=== PATIENT | male | born 1985 | race Caucasian/White ===

== ENCOUNTER 2017-05-03 18:33 | Observation (INO) | payer OTHER ==
[~2017-05-03] VITALS: Ht 177.8 cm; Wt 59.0 kg
[~2017-05-03 18:33] MED LIST: INSLIS SUBQ; INSU100V7 SUBQ; SYRI-233 SC
--- NOTE | 2017-05-03 18:40 | ED.REPORT ---
HPI-General Illness Date of Service May 03, 2017 ED Provider: Aldair Medellin DO 31 y/o male with a hx of DM and ADHD presents to the ED via EMS complaining of weakness, onset today. The pt missed his insulin doses over the weekend. He takes 60 units of Lantus. Associated sx include dizziness. He denies vomiting and fever. The pt was at [facility] for alcohol abuse. Nursing Notes Stated Complaint: HIGH BLOOD SUGAR Chief Complaint: General Complaint Nursing Notes Reviewed: Yes Allergies: Coded Allergies: No Known Allergies (Verified Allergy, Unknown, 05/03/17) Scheduled Insulin Glargine (Lantus U100 Insulin Vial) 100 Unit/Ml Vial 48 UNIT SUBQ HS Insulin Human Lispro (HumaLOG U100 Insulin Vial) 100 Unit/Ml Unit 22 UNIT SUBQ DIRECTED Check blood sugars before meals and at bedtime. Use correction factor in addition to your pre-meal insulin regimen as stated below. Blood Sugar Lispro Correction: <151, 0 units; 151-175, 1 unit; 176-200, 2 units; 201-225, 3 units ; 226-250, 4 units; 251-275, 5 units; 276-300, 6 units; 301-325, 7 units; 326- 350, 8 units; 351-375, 9 units; 376-400, 10 units; >400, 12 units. General Time Seen by MD: 18:38 Chief Complaint Weakness Hx Obtained From: Patient Arrived By: Ambulance Sudden in Onset?: No Onset Occurred: 2 days ago Symptom Duration: Since onset Severity: Current: No pain currently Severity: Maximum: No pain Recent Healthcare: No recent doctor visit Similar Sx Previous: No Past Medical History Past Medical History Notes: PCP: Dr. Samia Presley Admit for DKA from med noncompliance 03/2016 Past Medical History IDDM ADHD Anxiety Seizures Reports: Diabetes mellitus Reports: Depression Past Surgical History Reports: Tonsillectomy Family History Noncontributory Smoking History Former Smoker Social History Alcohol Use: 1-3 per week Drug Use: Denies drug use Other Social History: Good social support, Local resident Ambulatory Status Independent Review of Systems Reports: high blood sugar Full Review of Systems Constitutional: Reports: Weakness - generalized, Denies: Fever GI: Denies: Vomiting Neurologic: Reports: Dizziness Physical Exam Vital Signs Vital Signs Date Time Temp Pulse Resp B/P Pulse Ox O2 Delivery O2 Flow Rate FiO2 05/03/17 19:50 37.1 98 20 144/88 99 Room Air Initial VS: Reviewed Head / Eyes: Atraumatic, Normocephalic Neck: Supple, Non-tender, Full range of motion Extremities: Vascular intact, Neuro intact, No swelling, No tenderness Skin: Warm, Dry, No cyanosis Neurologic: Alert, Oriented, Nonfocal General/Constitutional: Awake, Alert Distress / Hydration: Positive: Distress mild Appearance / Presentation: Positive: Frail Respiratory / Chest: Atraumatic, Breath sounds NL, Breath sounds = bilat, No respiratory distress, No rales, No rhonchi, No wheezing Cardiovascular: Heart rate NL, Regular rhythm, Heart sounds NL, No gallop, No murmurs, No rubs Abdomen: Atraumatic, Soft, Non-tender, No guarding, No rebound Interpretation & Diagnostics Lab Results Interpretation Result Diagram: 05/03/17 1853 05/03/17 2150 Test 05/03/17 18:53 05/03/17 19:20 White Blood Count 6.7th/mm3 (3.8-10.1) Red Blood Count 5.10mil/mm3 (4.40-5.80) Hemoglobin 15.3g/dL (13.8-17.2) Hematocrit 43.5% (41.0-50.0) Mean Corpuscular Volume 85.3fL (81-100) Mean Corpuscular Hemoglobin 30.0pg (27.0-35.0) Mean Corpuscular Hemoglobin Concent 35.2% (32.0-37.0) Red Cell Distribution Width 11.9% (12.3-15.4) Platelet Count 425bil/L (150-400) Neutrophils (%) (Auto) 64.9% (40-74) Lymphocytes (%) (Auto) 24.7% (14-46) Monocytes (%) (Auto) 6.6% (4-12) Eosinophils (%) (Auto) 2.6% (0-5) Basophils (%) (Auto) 1.2% (0-3) Magnesium Level 1.9mg/dL (1.6-2.6) Ketones Small (Negative) Urine Color Yellow (YELLOW) Urine Appearance Clear (CLEAR,HAZY) Urine pH 5.5 (5.0-8.0) Urine Specific [place] 1.010 (1.003-1.035) Urine Protein Negativemg/dL (NEG,TRACE) Urine Glucose (UA) >1000mg/dL (NEGATIVE) Urine Ketones >80mg/dL (NEGATIVE) Urine Occult Blood Negative (NEGATIVE) Urine Nitrite Negative (NEGATIVE) Urine Bilirubin Negative (NEGATIVE) Urine Urobilinogen Normalmg/dL (NORMAL) Urine Leukocyte Esterase Negative (NEGATIVE) Urine RBC 0-2/hpf (0-2) Urine WBC 0-5/hpf (0-5) Urine Epithelial Cells Few/hpf (NONE-MOD) Urine Crystals None seen (NONE SEEN) Urine Bacteria Few/hpf (NONE-FEW) Urine Hyaline Casts None/lpf (NONE) Urine Granular Casts None seen (NONE SEEN) Urine Waxy Casts None seen (NONE SEEN) Urine Red Blood Cell Casts None seen (NONE SEEN) Urine White Blood Cell Casts None seen (NONE SEEN) Urine Mucus None seen (None Seen) Urine Trichomonas None seen (NONE SEEN) Urine Yeast None (NONE SEEN) Urinalysis Comment None Urine Culture Reflexed Not indicated Hold Urine Received (Received) Re-Eval/Medical Decision Med Decision/Clinical Course DKA likely due to noncompliance. Will admit. Insulin drip initiated in the ER. Time of Eval: 19:40 Re-Evaluation/Progress Note: Rechecked pt. Discussed lab results and plan to admit. Pt understands and agrees with the plan for admission. All questions addressed. Consultation : Referral / Consult Name: Shivam Churchill MD Consulted With: Hospitalist Call Returned at: 20:12 News Camera Operator: Will see patient, Agrees with eval, Agrees with plan, Accepts admit Counseled Regarding: Diagnosis, Lab results, Need for admission Discharge & Departure Primary Impression: DKA (diabetic ketoacidoses) Disposition: ADMITTED TO HOSPITAL Discharge Condition All VS Reviewed: Yes Referrals: NOPCP (PCP) Crit Care Except Billable Proc Time Spent: 30-74 minutes Services Performed: Patient management by me, Time spent at bedside, Reviewing test results Critical Care Notes: See MDM Scribe Attestation Portions of this note were transcribed by Juan Carrizales. I, , personally performed the history, physical exam and medical decision-making;I reviewed and confirmed the accuracy of the information in the transcribed note. Signed by Annika Dunlap. 05/03/17 20:15 Aldair Medellin DO May 03, 2017 18:40 Juan Carrizales May 03, 2017 18:43
[2017-05-03] MEDS ORDERED: 0.9% Sodium Chloride 1,000 ML IV ONE (18:45)
[2017-05-03] MEDS ORDERED: Ondansetron 2 mg/mL 2 mL Inj IV PRN (18:45)
[2017-05-03 19:03] LABS: BASOPHILS % (AUTO) 1.2 % (0-3); EOSINOPHILS % (AUTO) 2.6 % (0-5); MONOCYTES % (AUTO) 6.6 % (4-12); Mean Corpuscular Volume 85.3 fL (81-100); NEUTROPHILS % (AUTO) 64.9 % (40-74); Platelet Count 425 bil/L (150-400)
[2017-05-03 19:22] LABS: Magnesium 1.9 mg/dL (1.6-2.6)
[2017-05-03] MEDS: 0.9% Sodium Chloride 1,000 ML IV SCH ×2 (19:46→20:59)
[2017-05-03 19:50] VITALS: BP 144/88; PULSE 98; RESP 20; O2SAT 99
[2017-05-03] MEDS ORDERED: Insulin Human REGular 300 Unit/3 mL Inj IV PRN (20:05)
[2017-05-03] MEDS ORDERED: D5W1/2NS 1,000 mL IV PRN (20:05)
[2017-05-03] MEDS ORDERED: Insulin Human REGular 100 Units/100 mL NS IV SCH ×2 (20:05)
[2017-05-03] MEDS ORDERED: Polyethylene Glycol (PEG) 17 Gm Powder PO PRN ×2 (20:50→21:05)
[2017-05-03] MEDS ORDERED: Ondansetron 2 mg/mL 2 mL Inj IVPUSH PRN ×2 (20:50→21:05)
[2017-05-03] MEDS ORDERED: Alum-Mag Hydrox-Simeth 30 mL Suspension PO PRN ×2 (20:50→21:05)
[2017-05-03] MEDS ORDERED: Insulin Human REGular-Omnicell 100 Unit/mL ONE (20:59)
[2017-05-03 22:00] VITALS: BP 131/76; PULSE 103; RESP 17; O2SAT 98
--- NOTE | 2017-05-03 22:03 | PCM.HPMED ---
Subjective Date of Service May 03, 2017 Primary Provider: Admitting Physician: Shivam Churchill MD Primary Care Physician: Trinity Villa MD Attending Physician: Shivam Churchill MD Chief Complaint: DKA History of Present Illness: Mr. Holland is a 31-year-old male with past medical history diabetes mellitus type I and ADHD who presented to the ED via EMS secondary to confusion and weakness 1 day. Patient states that he has missed his diabetic medication 2 days secondary to insurance, pharmacy and physician miscommunication. He states he normally takes Lantus 70 units daily as well as additional Humalog when necessary. He is coming from [facility] where he was attending a meeting secondary to history of alcohol abuse (states last drink was June 2016 ) where he was noticed to be having trouble walking and talking. He denies nausea/vomiting, chest pain, shortness of breath, abdominal pain, changes in GI or habits. Endorses bilateral chronic ankle pain. In the ED blood glucose found to be 818, started on DKA protocol. Review of Systems: A comprehensive review of systems was conducted with the patient and found to be negative except as above in the history of present illness. Allergies Coded Allergies: No Known Allergies (Verified Allergy, Unknown, 05/03/17) Home Medications Insulin Glargine (Lantus U100 Insulin Vial) 100 Unit/Ml Vial 48 UNIT SUBQ HS Insulin Human Lispro (HumaLOG U100 Insulin Vial) 100 Unit/Ml Unit 22 UNIT SUBQ DIRECTED PMH IDDM ADHD Anxiety Seizures Reports: Diabetes mellitus Reports: Depression Surgical History Reports: Tonsillectomy Family History Noncontributory Social History Hx Alcohol Use: No Hx Substance Use: No Hx Tobacco Use: Yes Smoking Status: Former Smoker Exam Vital Signs Vital Sign - Last Date Time Temp Pulse Resp B/P Pulse Ox O2 Delivery O2 Flow Rate FiO2 05/03/17 19:50 37.1 98 20 144/88 99 Room Air Exam General: Awake and alert in no acute distress, well-developed, well-nourished, appropriately interactive HEENT: Normocephalic, atraumatic. External ears without defect. Pupils equal, round, and reactive to light and accommodation. Anicteric sclerae, moist conjunctivae, and no lid lag. Neck: Supple with full range of motion. No jugular venous distension. Cardiovascular: Regular rate and rhythm with no murmurs, rubs, or gallops appreciated Pulmonary: Clear to auscultation bilaterally with no crackles, wheezes, or rhonchi. Normal respiratory effort with no use of accessory muscles. Abdomen: Bowel tones present. Soft, nontender, nondistended. Extremities: No clubbing, cyanosis, edema Skin: Normal temperature, turgor, and texture Neurological: Cranial nerves grossly intact. Psychiatric: Normal mood and affect. Alert and oriented to person, place, and time. Lab and Diagnostics Result Diagram: 05/03/17185205/03/171852 Assessment & Plan 31 male past medical history diabetes mellitus type I, ADHD admitted for DKA Diabetic ketoacidosis. Acute on chronic. Present on admission. Ongoing - due to non compliance with insulin. No evidence of a infectious process - Glucose on admit 818 - DKA protocol initiated - Continue to monitor Pseudo Hyponatremia due to Hyperglycemia. Present on admission. Ongoing - Sodium 126 on admit - Received normal saline in the ED approximately 2 L - Recheck CMP Tobacco dependence. Present on admission. Ongoing - Nicotine patch Seizure disorder Not currently on any antiseizure medications Patient Status: Patient was admitted under inpatient status with expected length of stay greater than two midnights due to severity of presenting symptoms , risk of adverse event, and complexity of treatment plan. Pain Evaluation: Adequate Pain Control GI Prophylaxis: H2 claudine VTE Prophylaxis: Sub-Q Heparin (Unfractionated) Resuscitation Status: CPR: Attempt Resuscitation Attending Statement The patient was seen and examined together with Dr. Cerrato on 05/03 and I agree with the history, exam and plan as outlined in the note above. KELIN CERRATO DO May 03, 2017 22:03 Shivam Churchill MD May 03, 2017 23:23
[2017-05-03 23:08] LABS: Phosphorus 3.6 mg/dL (2.5-4.9)
[2017-05-03 23:38] LABS: APPEARANCE,URINE CLEAR (CLEAR,HAZY); COLOR,URINE YELLOW (YELLOW); PH,URINE 5.5 (5.0-8.0)
[2017-05-03 23:39] LABS: OCCULT BLOOD,URINE NEGATIVE (NEGATIVE); UROBILINOGEN,URINE NORMAL (NORMAL)
[2017-05-04] VITALS: BP 128/84; PULSE 98; RESP 19; O2SAT 99
[2017-05-04] MEDS: Heparin 5,000 Unit/mL Inj SUBQ SCH ×2 (01:07→09:00)
--- NOTE | 2017-05-04 01:20 | NUR ---
P) Admit Pt. admitted to CCU from ER at approx. 2155 last night, blood sugar on admission was 248mg/dl. Insulin gtt. infusing and adjusted per weight and protocol. Pt. denies pain, c/o thirst, per Dr. Cerrato pt. allowed ice water sips and ice chips. Cardiac rhythm initially ST/SVT with IVCD and PVC's, improving to SR and ST without conduction delay.Pt. voided in urinal on admission to floor, no difficulties noted, lungs with clear breath sounds, states he has no pain. I) Meds per 's orders, DKA protocol. Pt. independent with turns, using SCD's. E) Resting quietly with eyes closed.
[2017-05-04] MEDS ORDERED: Glucose 40% Oral Gel 15 Gm Tube PO PRN ×2 (01:35→04:40)
[2017-05-04] MEDS: Dextrose 10% 250 ML IV PRN ×2 (02:04→04:06)
[2017-05-04] MEDS: 0.9% Sodium Chloride 1,000 ML IV SCH ×2 (02:51→09:21)
[2017-05-04 03:01] LABS: BASOPHILS % (AUTO) 0.9 % (0-3); EOSINOPHILS % (AUTO) 3.8 % (0-5); MONOCYTES % (AUTO) 8.3 % (4-12); Mean Corpuscular Hemoglobin 29.7 pg (27.0-35.0); Mean Corpuscular Volume 85.6 fL (81-100); NEUTROPHILS % (AUTO) 46.4 % (40-74); Platelet Count 347 bil/L (150-400)
[2017-05-04 03:29] LABS: Magnesium 1.9 mg/dL (1.6-2.6)
[2017-05-04 04:00] VITALS: BP 126/86; PULSE 91; RESP 16; O2SAT 100
[2017-05-04] MEDS ORDERED: Insulin LISPRO 300 Unit/3 mL Inj SUBQ ONE (04:15)
[2017-05-04] MEDS ORDERED: Insulin LISPRO 300 Unit/3 mL Inj SUBQ SCH ×2 (04:20→08:00)
[2017-05-04] MEDS ORDERED: Dextrose 10% 250 ML IV PRN (04:40)
[2017-05-04] MEDS ORDERED: Insulin GLARgine 100 Unit/mL Syringe SUBQ SCH ×2 (04:55→21:00)
[2017-05-04] MEDS ORDERED: KCl 40 mEq/500 mL D5W(K 3 - 3.7 & Creat < 2) IV ONE (05:05)
[2017-05-04] MEDS ORDERED: Insulin GLARgine 100 Unit/mL Syringe SUBQ ONE (05:11)
[2017-05-04] MEDS ORDERED: INSU100I18 SUBQ (05:30)
[2017-05-04] MEDS ORDERED: INSU100V7 SUBQ (05:30)
--- NOTE | 2017-05-04 06:50 | NUR ---
P) DKA Pt.'s anion gap 11 on 0230 labs, insulin DKA protocol discontinued at 0700, Lantus given 0530. E) Pt. resting quietly with eyes closed.
[2017-05-04 07:42] VITALS: BP 125/88; PULSE 97; RESP 14; O2SAT 98
[2017-05-04] MEDS: Insulin LISPRO 300 Unit/3 mL Inj SUBQ SCH ×2 (08:00→12:00)
[2017-05-04 11:41] VITALS: BP 122/81; PULSE 98; RESP 18; O2SAT 98
--- NOTE | 2017-05-04 11:43 | PCM.DIMED ---
Discharge Instructions Date of Service May 04, 2017 Dates of Hospitalization May 03, 2017 at 20:29 Discharge Diagnosis Discharge Diagnosis Diabetic ketoacidosis. resolved. Pseudo Hyponatremia due to Hyperglycemia. Resolved. Tobacco dependence. Chronic. Seizure disorder Diet Discharge Diet: Diabetic Call your provider Call your provider for: Fever or Chills, Shortness of breath Patient Instructions Patient Instructions Call Al Mike with blood sugar questions, Follow-up Provider: Keith Gary MD Follow-up with PCP in: 1 week Narciso Mckeon MD May 04, 2017 11:43
--- NOTE | 2017-05-04 13:26 | NUR ---
Discharge Note: Discussed discharge instructions and continued medications. No new prescriptions (pt states he now has insulin at home). Pt verbalized understanding of information. Pt requested to schedule his own appointment to fit his personal schedule. All questions answered and needs attended to. Pt tolerating PO intake without report of N/V/G. BG now within normal range (see documentation). Pt is able to ambulate and dress self without report of CP, SOB or dizziness. VSS. Pt exited unit via WC with all personal belongings and transported home by a friend in a personal vehicle.
--- NOTE | 2017-05-04 17:10 | NUR ---
Social Work Note: Screen Note/Discharge (Late Entry) Data& Assessment: Per pt is medically ready to discharge home via POV. Keith Enriquez is a 31 year old male under observation for DKA. Per pt is medically improved and ready to discharge. Pt has [employer] insurance coverage and sees Trinity Villa MD for primary care. [employer] RN case coni Hedrick attempted to meet with pt at bedside prior to D/C and left information for SW to provide to pt. SW met with pt at bedside to confirm discharge plan and assess for any unmet needs. Information from [employer] provided. Pt mother Deisy is transporting pt home. Pt denies any other needs. No other discharge needs identified. Plan: Per pt is medically ready to discharge home via POV. Pt mother Deisy is transporting pt home. Pt denies any other needs. No other discharge needs identified. OMKAR Israel
--- NOTE | 2017-05-05 07:55 | PCM.DC.MED ---
Discharge Summary Date of Service May 04, 2017 Dates of Hospitalization Date of Hospital Admission May 03, 2017 at 20:29 Date of Discharge: May 04, 2017 Providers: Admitting Physician: Shivam Churchill MD Primary Care Physician: Trinity Villa MD Attending Physician: Shivam Churchill MD Diagnosis at Time of Discharge Diagnosis at Time of Discharge Diabetic ketoacidosis. resolved. Pseudo Hyponatremia due to Hyperglycemia. Resolved. Tobacco dependence. Chronic. Seizure disorder Consultations None Procedures Cardiac Echo Impression None Brief History Mr. Holland is a 31-year-old male with past medical history diabetes mellitus type I and ADHD who presented to the ED via EMS secondary to confusion and weakness 1 day. Patient states that he has missed his diabetic medication 2 days secondary to insurance, pharmacy and physician miscommunication. He states he normally takes Lantus 70 units daily as well as additional Humalog when necessary. He is coming from [facility] where he was attending a meeting secondary to history of alcohol abuse (states last drink was June 2016 ) where he was noticed to be having trouble walking and talking. He denies nausea/vomiting, chest pain, shortness of breath, abdominal pain, changes in GI or habits. Endorses bilateral chronic ankle pain. In the ED blood glucose found to be 818, started on DKA protocol. Hospital Course 31 male past medical history diabetes mellitus type I, ADHD admitted for DKA Diabetic ketoacidosis. Acute on chronic. Present on admission. Ongoing - due to non compliance with insulin. No evidence of a infectious process - Glucose on admit 818 - DKA protocol initiated - Continue to monitor Course, the patient was admitted and placed on a DKA insulin drip per protocol. He resolved his acidosis and close his anion gap. He was converted to subcutaneous insulin. He had no other residual symptoms was able to be without difficulty. He did have inadvertent medication noncompliance leading up to this event. He is able to get his insulin at the time of discharge. This is confirmed. Dosing is reviewed. Pseudo Hyponatremia due to Hyperglycemia. Present on admission. Ongoing - Sodium 126 on admit - Received normal saline in the ED approximately 2 L - Recheck CMP This corrected with treatment of his DKA. Tobacco dependence. Present on admission. Ongoing - Nicotine patch Seizure disorder Not currently on any antiseizure medications, no activity during hospitalization. Patient Status: Patient was admitted under inpatient status with expected length of stay greater than two midnights due to severity of presenting symptoms , risk of adverse event, and complexity of treatment plan. Exam Vital Signs (Last) Date Time Temp Pulse Resp B/P Pulse Ox O2 Delivery O2 Flow Rate FiO2 05/04/17 11:41 36.8 98 18 122/81 98 Room Air Exam Patient seen and examined on the day of discharge Test 05/03/17 02:49 05/03/17 18:53 05/03/17 19:20 05/03/17 20:50 Ketones Small (Negative) Urine Color Yellow (YELLOW) Urine Appearance Clear (CLEAR,HAZY) Urine pH 5.5 (5.0-8.0) Urine Specific [place] 1.010 (1.003-1.035) Urine Protein Negativemg/dL (NEG,TRACE) Urine Glucose (UA) >1000mg/dL (NEGATIVE) Urine Ketones >80mg/dL (NEGATIVE) Urine Occult Blood Negative (NEGATIVE) Urine Nitrite Negative (NEGATIVE) Urine Bilirubin Negative (NEGATIVE) Urine Urobilinogen Normalmg/dL (NORMAL) Urine Leukocyte Esterase Negative (NEGATIVE) Urine RBC 0-2/hpf (0-2) Urine WBC 0-5/hpf (0-5) Urine Epithelial Cells Few/hpf (NONE-MOD) Urine Crystals None seen (NONE SEEN) Urine Bacteria Few/hpf (NONE-FEW) Urine Hyaline Casts None/lpf (NONE) Urine Granular Casts None seen (NONE SEEN) Urine Waxy Casts None seen (NONE SEEN) Urine Red Blood Cell Casts None seen (NONE SEEN) Urine White Blood Cell Casts None seen (NONE SEEN) Urine Mucus None seen (None Seen) Urine Trichomonas None seen (NONE SEEN) Urine Yeast None (NONE SEEN) Urinalysis Comment None Urine Culture Reflexed Not indicated Hold Urine Received (Received) Hold Purple Top Tube Received (Received) Hold Blue Top Tube Received (Received) Hold Red Top Tube Received (Received) Hold [place] Top Tube Received (Received) Hold Box Top Tube Received (Received) Test 05/03/17 21:50 05/04/17 02:49 Hemoglobin A1c 9.0% (4.8-5.6) Osmolality 309 (275-300) Phosphorus Level 3.6mg/dL (2.5-4.9) White Blood Count 7.0th/mm3 (3.8-10.1) Red Blood Count 4.31mil/mm3 (4.40-5.80) Hemoglobin 12.8g/dL (13.8-17.2) Hematocrit 36.9% (41.0-50.0) Mean Corpuscular Volume 85.6fL (81-100) Mean Corpuscular Hemoglobin 29.7pg (27.0-35.0) Mean Corpuscular Hemoglobin Concent 34.7% (32.0-37.0) Red Cell Distribution Width 11.9% (12.3-15.4) Platelet Count 347bil/L (150-400) Neutrophils (%) (Auto) 46.4% (40-74) Lymphocytes (%) (Auto) 40.5% (14-46) Monocytes (%) (Auto) 8.3% (4-12) Eosinophils (%) (Auto) 3.8% (0-5) Basophils (%) (Auto) 0.9% (0-3) Sodium Level 140mEq/L (134-144) Potassium Level 3.7mEq/L (3.5-5.2) Chloride Level 107mEq/L (97-108) Carbon Dioxide Level 22mmol/L (18-29) Blood Urea Nitrogen 15mg/dL (6-20) Creatinine 0.62mg/dL (0.76-1.27) Estimat Glomerular Filtration Rate 160mL/min (>59) Glucose Level 96mg/dL (60-99) Calcium Level 9.1mg/dL (8.5-10.1) Magnesium Level 1.9mg/dL (1.6-2.6) Total Bilirubin 0.4mg/dL (0.0-1.2) Aspartate Amino Transf (AST/SGOT) 9U/L (0-50) Alanine Aminotransferase (ALT/SGPT) 9U/L (0-44) Alkaline Phosphatase 85U/L (25-150) Total Protein 5.6g/dL (6.4-8.4) Albumin 3.5g/dL (3.4-5.0) Discharge Medications Discharge Medications Insulin Glargine (Lantus U100 Insulin Vial) 100 Unit/Ml Vial 70 UNIT SUBQ HS ( Reported) Insulin Lispro (HumaLOG U100 Insulin Pen) 100 Unit/1 Ml Insuln.pen 18-20 UNIT SUBQ ACHS (Reported) Blood Sugar Lispro Correction <151 0 units 151-175 1 unit 176-200 2 units 201-225 3 units 226-250 4 units 251-275 5 units 276-300 6 units 301-325 7 units 326-350 8 units 351-375 9 units 376-400 10 units >400 12 units Check blood sugars before meals and at bedtime. Use correction factor only before meals. Durable Medical Equipment Syring W-Ndl,Disp,Insul,0.3ML (Insulin Syringe) 1 Each Disp.syrin 1 EACH SC ACHS (DME) Prescribed by: DENIS CARRASCO, Followup Plan Disposition: Home Discharge Diet: Diabetic Patient Instructions Call Juan Mckeontojustino with blood sugar questions, Follow-up Provider: Keith Gary MD Follow-up with PCP in: 1 week Time spent 45 min Narciso Mckeon MD May 05, 2017 07:55
== END 2017-05-04 13:31 | disposition home or self-care (01) ==
LOC: SED 18:33 → INTOOBSV 20:29 → CCU 20:29
PROVIDERS: ADMIT Hospitalist; ATTEND Hospitalist
DX: E10.10 Type 1 diabetes mellitus with ketoacidosis without coma (principal); E87.1 Hypo-osmolality and hyponatremia; F90.9 Attention-deficit hyperactivity disorder, unspecified type; F41.9 Anxiety disorder, unspecified; F32.9 Major depressive disorder, single episode, unspecified; R56.9 Unspecified convulsions; F10.21 Alcohol dependence, in remission; Z87.891 Personal history of nicotine dependence; Z79.4 Long term (current) use of insulin
CPT/HCPCS: 36415; 80053; 81000; 82009; 82948; 83036; 83735; 83930; 84100; 85025; 87641; 93005; 96361; 96374; 96375; 99291; G0378; J1644; J1815; J2405; J3480; J7030